=== PATIENT | male | born 1950 | race Caucasian/White ===

== ENCOUNTER 2018-06-26 02:14 | Emergency (ER) | payer MEDICARE, BC ==
[~2018-06-26] VITALS: Ht 172.7 cm; Wt 76.8 kg
[2018-06-26] MEDS ORDERED: NEXI20CA PO (02:50)
[2018-06-26] MEDS ORDERED: TAMS1CAP17 PO (02:50)
[2018-06-26] MEDS ORDERED: CO Q10CA PO (02:50)
[2018-06-26] MEDS ORDERED: VALA-3 PO (02:50)
[2018-06-26] MEDS ORDERED: ROSU5TAB4 PO (02:50)
[2018-06-26 04:57] LABS: BASO % 0.2 % (0.0-1.0); EOS % 0.1 % (0.0-3.0); HEMATOCRIT 33.5 % (42.0-52.0); HEMOGLOBIN 11.8 g/dl (13.5-17.5); LYMPH # 0.7 10^3/uL (1.5-4.5); LYMPH % 8.7 % (24.0-44.0); MEAN CORPUSCULAR HEMOGLOBIN 33.1 pg (27.0-33.0); MEAN CORPUSCULAR HGB CONC 35.2 g/dl (32.0-36.5); MEAN CORPUSCULAR VOLUME 94.1 fl (80.0-96.0); MONO # 0.6 10^3/uL (0.0-0.8); MONO % 7.7 % (0.0-5.0); NEUTROPHILS # 6.7 10^3/uL (1.8-7.7); NEUTROPHILS % 82.8 % (36.0-66.0); PLATELET COUNT, AUTOMATED 206 10^3/uL (150-450); RED BLOOD COUNT 3.56 10^6/uL (4.30-6.10); WHITE BLOOD COUNT 8.1 10^3/uL (4.0-10.0)
[2018-06-26 05:06] LABS: ALBUMIN 3.5 GM/DL (3.2-5.2); ALT/SGPT 35 U/L (12-78); BILIRUBIN,DIRECT 0.2 MG/DL (0.0-0.2); BILIRUBIN,TOTAL 0.9 MG/DL (0.2-1.0); BLOOD UREA NITROGEN 12 MG/DL (7-18); CARBON DIOXIDE LEVEL 21 MEQ/L (21-32); CHLORIDE LEVEL 96 MEQ/L (98-107); GLOMERULAR FILTRATION RATE > 60.0 (>42); GLUCOSE, FASTING 114 MG/DL (70-100); LIPASE 98 U/L (73-393); POTASSIUM SERUM 4.5 MEQ/L (3.5-5.1); SODIUM LEVEL 128 MEQ/L (136-145); TOTAL PROTEIN 6.2 GM/DL (6.4-8.2)
[2018-06-26 05:37] LABS: APPEARANCE, URINE CLEAR (CLEAR); BACTERIA, URINE AUTO NEGATIVE (NEGATIVE); BILIRUBIN, URINE AUTO NEGATIVE (NEGATIVE); BLOOD, URINE BLOOD NEGATIVE (NEGATIVE); COLOR, URINE STRAW (YELLOW); GLUCOSE, URINE (UA) AUTO NEGATIVE (NEGATIVE); KETONE, URINE AUTO 2+ mg/dL (NEGATIVE); LEUKOCYTE ESTERASE, URINE AUTO NEGATIVE (NEGATIVE); MUCUS, URINE SMALL (NEGATIVE); NITRITE, URINE AUTO NEGATIVE (NEGATIVE); PROTEIN, URINE AUTO NEGATIVE (NEGATIVE); RBC, URINE AUTO 2 /HPF (0-3); SQUAMOUS EPITHELIAL CELL UR AU 0 /HPF (0-6); UROBILINOGEN, URINE AUTO 0.2 mg/dL (0.0-2.0); WBC, URINE AUTO 0 /HPF (0-3)
--- NOTE | 2018-06-26 06:45 | ECGEPIP ---
Stationary ECG Study [facility] - ED Test Date: 2018-06-26 Pat Name: NIDIA NUNEZ Department: Room: - Gender: M Grinding Machine Operator Automatic: : 1950 Requested By: DHRUV BLUNT Order Number: [id number] Reading MD: Dipak Benson Measurements Intervals [place] Rate: 68 P: 71 AK: 179 QRS: 9 QRSD: 87 T: 41 QT: 407 QTc: 435 Interpretive Statements SINUS RHYTHM POOR R WAVE PROGRESSION NO PRIORS FOR COMPARISON Electronically Signed On 06-26-2018 6:45:07 EDT by Dipak Benson
[2018-06-26] MEDS ORDERED: NS 1,000 ML IV ONE (07:00)
[2018-06-26] MEDS ORDERED: METOCLOPRAMIDE INJ 10MG/2ML VIAL (J2765) IV ONE (07:00)
[2018-06-26 07:39] LABS: CPK CREATINE PHOSPHOKINASE 1118 U/L (39-308); MB/CK RELATIVE INDEX 1.58 (< OR =4); TROPONIN I < 0.02 NG/ML (< 0.10)
[2018-06-26] MEDS ORDERED: NS 1,000 ML IV SCH (07:46)
[2018-06-26 08:52] LABS: CPK CREATINE PHOSPHOKINASE 827 U/L (39-308); TROPONIN I < 0.02 NG/ML (< 0.10)
[2018-06-26] MEDS ORDERED: ZOFR4TAB16 PO (09:07)
[2018-06-26 09:48] VITALS: BP 108/59
--- NOTE | 2018-06-27 07:01 | ECGEPIP ---
Stationary ECG Study [facility] [place] - ED Test Date: 2018-06-26 Pat Name: NIDIA NUNEZ Department: Room: - Gender: M Superintendent Warehouse: TC : 1950 Requested By: KENNA Anglin Order Number: [id number] Reading MD: Dipak Benson Measurements Intervals [place] Rate: 72 P: 68 IA: 171 QRS: 11 QRSD: 88 T: 47 QT: 403 QTc: 443 Interpretive Statements SINUS RHYTHM SEPTAL MYOCARDIAL INFARCTION, PROBABLY OLD SIMILAR TO PRIOR ON SAME DATE Electronically Signed On 06-27-2018 7:00:53 EDT by Dipak Benson
== END 2018-06-26 09:50 | disposition home or self-care (01) ==
LOC: M ED 02:14
DX: K52.9 Noninfective gastroenteritis and colitis, unspecified (principal); R11.10 Vomiting, unspecified; E78.5 Hyperlipidemia, unspecified; K21.9 Gastro-esophageal reflux disease without esophagitis; N40.0 Benign prostatic hyperplasia without lower urinary tract symptoms; Z79.899 Other long term (current) drug therapy; Z88.8 Allergy status to other drugs, medicaments and biological substances
CPT/HCPCS: 80048; 80076; 81001; 82550; 82553; 83605; 83690; 84484; 85025; 93005; 93041; 96361; 96374; 99284; J2765